=== PATIENT | female | born 1965 | race Native Hawaiian/Other Pacific Islander ===

== ENCOUNTER 2022-06-23 12:05 | Emergency (ER) | payer OTHER ==
[~2022-06-23] VITALS: Ht 170.2 cm; Wt 99.8 kg
[2022-06-23 12:10] VITALS: TEMP 97
[2022-06-23 12:42] LABS: PLATELET COUNT 280 K/uL (152-353)
[2022-06-23 12:44] LABS: POTASSIUM 3.6 mmol/L (3.6-5.2); SODIUM 140 mmol/L (136-145)
[2022-06-23 13:48] VITALS: BP 121/51
== END 2022-06-23 13:48 | disposition home or self-care (01) ==
LOC: ED 12:11
PROVIDERS: Emergency Medicine
DX: S20.219A Contusion of unspecified front wall of thorax, initial encounter (principal); W22.8XXA Striking against or struck by other objects, initial encounter
CPT/HCPCS: 80053; 80320; 82550; 84484; 85027; 93005; 96374; 96375; 99284; J2270; J2405